=== PATIENT | male | born 1995 | race Caucasian/White ===

== ENCOUNTER 2016-05-25 22:28 | Emergency (ER) | payer OTHER ==
[~2016-05-25] VITALS: Ht 172.7 cm; Wt 61.0 kg
[2016-05-25 22:30] VITALS: BP 151/94; PULSE 78; RESP 20; TEMP 97.7; O2SAT 97
[2016-05-25 23:16] LABS: AUTOMATED NEUTROPHIL # 2.1 TH/MM3 (1.8-7.7); BASOPHIL % 0.5 % (0.0-2.0); EOSINOPHIL # 0.1 TH/MM3 (0-0.4); EOSINOPHIL % 1.7 % (0.0-4.0); HEMATOCRIT 40.5 % (39.0-51.0); HEMO FLAGS DIFF FINAL; LYMPH % 42.6 % (9.0-44.0); MEAN CELL VOLUME 89.6 FL (80.0-100.0); MEAN CORPUSCULAR HGB CONC 34.5 % (32.0-36.0); MONO % 9.5 % (0.0-8.0); NEUT % 45.7 % (16.0-70.0); PLATELET COUNT 260 TH/MM3 (150-450); RED BLOOD COUNT 4.52 MIL/MM3 (4.50-5.90); RED CELL DISTRIBUTION WIDTH 13.1 % (11.6-17.2); WHITE BLOOD COUNT 4.6 TH/MM3 (4.0-11.0)
--- NOTE | 2016-05-25 23:31 | PD ---
HPI Chief Complaint: Cardiac Complaint Time Seen by Provider: 23:13 Travel History International Travel<30 days: No Contact w/Intl Traveler<30days: No Traveled to known affect area: No History of Present Illness HPI 20-year-old male complains of irregular heartbeat and left-sided chest pain. Patient states that he has a focal area of sharp intermittent sharp stabbing chest pain on the left chest for the past 2 days. Patient states that he had some irregular heartbeats tonight. Patient denies any coughing congestion fever chills. Patient denies any recent injury. Patient denies any history of CAD. Patient has history ADD and has been taking Concerta. Patient has not taken Concerta for the past 2 days. Patient denies any illicit drug abuse or alcohol abuse. [facility] Past Medical History Anxiety: Yes (GENERALIZED) Past Surgical History Genitourinary Surgery: Yes (TESTICULAR TORTION) Oral Surgery: Yes (wisdom teeth x 4) Social History Alcohol Use: Yes (monthly) Tobacco Use: Yes (2-3 daily) Substance Use: No Allergies-Medications (Allergen,Severity, Reaction): Coded Allergies: Pertussis Vaccine (Verified Allergy, Unknown, 05/25/16) Review of Systems General / Constitutional: No: Fever Eyes: No: Visual changes HENT: No: Headaches Cardiovascular: Positive: Chest Pain or Discomfort, Palpitations Respiratory: No: Shortness of Breath Gastrointestinal: No: Abdominal Pain Genitourinary: No: Dysuria Musculoskeletal: No: Pain Skin: No Rash Neurologic: No: Weakness Psychiatric: No: Depression Endocrine: No: Polydipsia Hematologic/Lymphatic: No: Easy Bruising Physical Exam Narrative GENERAL: Well-nourished, well-developed patient. SKIN: Warm and dry. HEAD: Normocephalic. EYES: No scleral icterus. No injection or drainage. NECK: Supple, trachea midline. No JVD or lymphadenopathy. CARDIOVASCULAR: Regular rate and rhythm without murmurs, gallops, or rubs. RESPIRATORY: Breath sounds equal bilaterally. No accessory muscle use. GASTROINTESTINAL: Abdomen soft, non-tender, nondistended. MUSCULOSKELETAL: No cyanosis, or edema. BACK: Nontender without obvious deformity. No CVA tenderness. Neurologic exam normal. Data Data Last Documented VS Vital Signs Date Time Temp Pulse Resp B/P Pulse Ox O2 Delivery O2 Flow Rate FiO2 05/25/16 22:53 90 100 05/25/16 22:30 97.7 20 151/94 Room Air Orders Complete Blood Count With Diff (05/25/16 22:57) Comprehensive Metabolic Panel (05/25/16 22:57) Troponin I (05/25/16 22:57) Electrocardiogram (05/25/16 ) Labs Laboratory Tests Test 05/25/16 22:45 White Blood Count 4.6 TH/MM3 Red Blood Count 4.52 MIL/MM3 Hemoglobin 14.0 GM/DL Hematocrit 40.5 % Mean Corpuscular Volume 89.6 FL Mean Corpuscular Hemoglobin 31.0 PG Mean Corpuscular Hemoglobin 34.5 % Concent Red Cell Distribution Width 13.1 % Platelet Count 260 TH/MM3 Mean Platelet Volume 8.1 FL Neutrophils (%) (Auto) 45.7 % Lymphocytes (%) (Auto) 42.6 % Monocytes (%) (Auto) 9.5 % Eosinophils (%) (Auto) 1.7 % Basophils (%) (Auto) 0.5 % Neutrophils # (Auto) 2.1 TH/MM3 Lymphocytes # (Auto) 2.0 TH/MM3 Monocytes # (Auto) 0.4 TH/MM3 Eosinophils # (Auto) 0.1 TH/MM3 Basophils # (Auto) 0.0 TH/MM3 CBC Comment DIFF FINAL Differential Comment Sodium Level 141 MEQ/L Potassium Level 3.8 MEQ/L Chloride Level 105 MEQ/L Carbon Dioxide Level 29.6 MEQ/L Anion Gap 6 MEQ/L Blood Urea Nitrogen 12 MG/DL Creatinine 0.82 MG/DL Estimat Glomerular Filtration 121 ML/MIN Rate Random Glucose 100 MG/DL Calcium Level 8.4 MG/DL Total Bilirubin 0.5 MG/DL Aspartate Amino Transf 37 U/L (AST/SGOT) Alanine Aminotransferase 46 U/L (ALT/SGPT) Alkaline Phosphatase 115 U/L Troponin I LESS THAN 0.02 NG/ML Total Protein 6.8 GM/DL Albumin 4.0 GM/DL [facility] Medical Decision Making Medical Screen Exam Complete: Yes Emergency Medical Condition: Yes Interpretation(s) 23:29 PM. EKG shows sinus rhythm nonspecific ST-T wave change. CBC CMP within normal limit. Cardiac enzymes are normal. Differential Diagnosis Differential diagnosis including atrial fibrillation, atrial flutter, PACs, PVCs , arrhythmia. Narrative Course 20-year-old male with intermittent sharp pain localized to the spot on the left chest and irregular heartbeat this evening. No history of CAD. Patient's on Concerta for ADD. Diagnosis Primary Impression: Atypical chest pain Additional Impression: Cardiac arrhythmia Qualified Code: I49.9 - Cardiac arrhythmia, unspecified cardiac arrhythmia type Patient Instructions: General Instructions Additional Instructions: Follow-up with personal physician. Return if increasing chest pain or shortness of breath. Med/Other Pt SpecificInfo: No Change to Meds Disposition: 01 DISCHARGE HOME Condition: Stable Nitin Alejandro MD May 25, 2016 23:31
[2016-05-25 23:47] LABS: ALKALINE PHOSPHATASE 115 U/L (45-117); TOTAL BILIRUBIN ADULT 0.5 MG/DL (0.2-1.0)
[2016-05-25 23:55] LABS: ALT (GPT) 46 U/L (9-52); ANION GAP 6 MEQ/L (5-15); AST (GOT) 37 U/L (15-39); BICARBONATE 29.6 MEQ/L (21.0-32.0); BLOOD UREA NITROGEN 12 MG/DL (7-18); CHLORIDE 105 MEQ/L (98-107); GLOMERULAR FILTRATION RATE 121 ML/MIN (>89); POTASSIUM 3.8 MEQ/L (3.5-5.1); SODIUM (NA) 141 MEQ/L (136-145)
--- NOTE | 2016-05-26 11:39 | EKG ---
Date Performed: 05/25/2016 Time Performed: 22:56:45 PTAGE: 20 years EKG: Sinus rhythm POSSIBLE RIGHT VENTRICULAR CONDUCTION DELAY BORDERLINE ECG NO PREVIOUS TRACING DOCTOR: Darin Mcfadden Interpretating Date/Time 05/26/2016 11:38:29
== END 2016-05-26 00:24 | disposition home or self-care (01) ==
LOC: NEPE 22:28
DX: R07.89 Other chest pain (principal); I49.9 Cardiac arrhythmia, unspecified; F41.9 Anxiety disorder, unspecified; Z72.0 Tobacco use
CPT/HCPCS: 80053; 84484; 85025; 93005; 99284

== ENCOUNTER 2016-07-12 02:04 | Emergency (ER) | payer OTHER ==
[~2016-07-12] VITALS: Ht 170.2 cm; Wt 65.0 kg
[2016-07-12 02:17] VITALS: BP 141/90; PULSE 97; RESP 18; TEMP 98.4; O2SAT 100
[2016-07-12] MEDS ORDERED: SODIUM CHLOR 0.9% 1000 ML INJ 1,000 ML IV ONE (02:45)
--- NOTE | 2016-07-12 03:23 | PD ---
HPI Chief Complaint: Alcohol/Drug Intoxication Time Seen by Provider: 02:33 Travel History International Travel<30 days: No Contact w/Intl Traveler<30days: No Traveled to known affect area: No History of Present Illness HPI 20-year-old male brought in by EMS after being found [place] passed out in the laundry room. The patient admits to drinking alcohol tonight , but does not recall how he got to the laundry room. On my assessment he is awake and alert. He is denying any physical complaints. He denies using any illicit drugs. He admits to drinking vodka tonight. [facility] Past Medical History Anxiety: Yes (GENERALIZED) Tetanus Vaccination: < 5 Years Influenza Vaccination: No Past Surgical History Genitourinary Surgery: Yes (TESTICULAR TORTION) Oral Surgery: Yes (wisdom teeth x 4) Social History Alcohol Use: Yes (monthly) Tobacco Use: Yes (2-3 daily) Substance Use: No Allergies-Medications (Allergen,Severity, Reaction): Coded Allergies: Pertussis Vaccine (Verified Allergy, Unknown, 05/25/16) Review of Systems Except as stated in HPI: all other systems reviewed are Neg Physical Exam Narrative GENERAL: Well-developed, well-nourished, comfortable, no acute distress, awake, alert SKIN: Focused skin assessment warm/dry. No rash. No lacerations, abrasions, or ecchymosis. HEAD: Atraumatic. Normocephalic. EYES: Pupils equal and round. No scleral icterus. No injection or drainage. ENT: No nasal bleeding or discharge. Mucous membranes pink and moist. NECK: Trachea midline. No JVD. CARDIOVASCULAR: Regular rate and rhythm. RESPIRATORY: No accessory muscle use. Clear to auscultation. Breath sounds equal bilaterally. GASTROINTESTINAL: Abdomen soft, non-tender, nondistended. MUSCULOSKELETAL: No obvious deformities. No clubbing. No cyanosis. No edema. NEUROLOGICAL: Awake and alert. No obvious cranial nerve deficits. Motor grossly within normal limits. Normal speech. PSYCHIATRIC: Appropriate mood and affect; insight and judgment normal. Data Data Last Documented VS Vital Signs Date Time Temp Pulse Resp B/P Pulse Ox O2 Delivery O2 Flow Rate FiO2 07/12/16 02:23 79 18 100 Room Air 07/12/16 02:17 98.4 141/90 Orders Sodium Chlor 0.9% 1000 Ml Inj (Ns 1000 M (07/12/16 02:45) Alcohol (Ethanol) (07/12/16 02:37) Labs Laboratory Tests Test 07/12/16 02:45 Ethyl Alcohol Level 291 MG/DL MDM Medical Decision Making Medical Screen Exam Complete: Yes Emergency Medical Condition: Yes Differential Diagnosis Alcohol intoxication, drug intoxication, intracranial abnormality unlikely Narrative Course Vital signs reviewed. Alcohol level is 291. Patient was given a liter of normal saline IV. He is overall very well- appearing. He will be allowed to sleep off his intoxication in the emergency department. Diagnosis Primary Impression: Alcohol intoxication Qualified Code: F10.120 - Alcohol intoxication, uncomplicated Referrals: Primary Care Physician 3 days Disposition: 01 DISCHARGE HOME Condition: Stable Jones Fotoe MD Jul 12, 2016 03:23
[2016-07-12 06:29] VITALS: BP 100/54; PULSE 90; RESP 18; O2SAT 100
== END 2016-07-12 08:23 | disposition home or self-care (01) ==
LOC: NEPE 02:04
DX: F10.120 Alcohol abuse with intoxication, uncomplicated (principal); F17.210 Nicotine dependence, cigarettes, uncomplicated
CPT/HCPCS: 80307; 99284; J7030